=== PATIENT | female | born 1970 | race Caucasian/White ===

== ENCOUNTER 2020-08-06 10:44 | Outpatient (CLI) | payer OTHER | END 2020-08-06 10:45 | disposition home or self-care (01) | LOC: CSHULT 10:44 | PROVIDERS: ATTEND Internal Medicine | DX: M79.605 Pain in left leg (principal); M79.604 Pain in right leg; R60.0 Localized edema; Z86.718 Personal history of other venous thrombosis and embolism | CPT/HCPCS: 93970 ==

== ENCOUNTER 2024-12-31 15:44 | Outpatient (CLI) | payer OTHER | END 2024-12-31 15:45 | disposition home or self-care (01) | LOC: CSHULT 15:44 | PROVIDERS: ATTEND Internal Medicine | DX: E04.1 Nontoxic single thyroid nodule (principal); E04.2 Nontoxic multinodular goiter | CPT/HCPCS: 76536 ==